=== PATIENT | male | born 1980 | race African-American/Black ===

== ENCOUNTER 2017-02-05 14:14 | Emergency (ER) | payer MEDICAID ==
[~2017-02-05] VITALS: Ht 167.6 cm; Wt 64.0 kg
[2017-02-05 14:33] VITALS: BP 121/74
== END 2017-02-05 16:33 | disposition home or self-care (01) ==
LOC: ER 14:54
DX: S86.812A Strain of other muscle(s) and tendon(s) at lower leg level, left leg, initial encounter (principal); F17.210 Nicotine dependence, cigarettes, uncomplicated; Z98.890 Other specified postprocedural states; X50.1XXA Overexertion from prolonged static or awkward postures, initial encounter; Y93.67 Activity, basketball; Y92.39 Other specified sports and athletic area as the place of occurrence of the external cause
CPT/HCPCS: 73562; 99284

== ENCOUNTER 2017-10-25 10:24 | Emergency (ER) | payer SELFPAY ==
[~2017-10-25] VITALS: Ht 165.1 cm; Wt 64.0 kg
[2017-10-25] MEDS ORDERED: ACETAMINOPHEN WITH CODEINE 300/30MG TABLET PO ONE (11:30)
[2017-10-25 11:50] VITALS: BP 109/73
== END 2017-10-25 12:34 | disposition home or self-care (01) ==
LOC: ER 10:52
DX: S83.92XA Sprain of unspecified site of left knee, initial encounter (principal); F17.200 Nicotine dependence, unspecified, uncomplicated; Y93.67 Activity, basketball; Y92.9 Unspecified place or not applicable
CPT/HCPCS: 93971; 99284